=== PATIENT | male | born 1985 | race Two or more races ===

== ENCOUNTER 2016-04-04 10:10 | Emergency (ER) | payer SELFPAY ==
[~2016-04-04] VITALS: Ht 167.6 cm; Wt 72.6 kg
[2016-04-04 10:25] VITALS: BP 113/83
== END 2016-04-04 10:53 | disposition home or self-care (01) ==
LOC: ER 10:11
DX: J20.9 Acute bronchitis, unspecified (principal); J02.9 Acute pharyngitis, unspecified